=== PATIENT | female | born 1985 | race Asian ===

== ENCOUNTER → 2020-07-20 09:44 | Outpatient (CLI) | payer BC, SELFPAY ==
[2020-07-24 14:52] LABS: HPV APTIMA, High Risk Negative (Negative)
== END ==
PROVIDERS: Visit Provider Obstetrics & Gynecology
DX: Z12.4 Encounter for screening for malignant neoplasm of cervix (principal)
CPT/HCPCS: 87624; 88175; G0145

== ENCOUNTER → 2021-01-07 08:45 | Outpatient (CLI) | payer BC, SELFPAY ==
[2021-01-07 11:03] LABS: Progesterone Level 9.36 ng/mL (See Comment)
== END ==
PROVIDERS: Visit Provider Obstetrics & Gynecology
DX: N97.9 Female infertility, unspecified (principal)
CPT/HCPCS: 36415; 84144

== ENCOUNTER → 2021-01-17 07:32 | Outpatient (CLI) | payer BC, SELFPAY ==
[2021-01-17 08:58] LABS: T3 Total - Triiodothyronine 1.04 ng/mL (0.6-1.81)
[2021-01-17 09:05] LABS: Estradiol 30.3 pg/mL; Follicle Stimulating Hormone 5.6 mIU/mL; Free T3 2.5 pg/mL (2.18-3.98); Prolactin 12.8 ng/mL; T4 Free Direct 0.93 ng/dL (0.76-1.46); Thyroid Stim Hormone (TSH) 1.62 uIU/mL (0.358-3.74)
[2021-01-18 08:01] LABS: Sex Hormone-binding Globulin 29.3 nmol/L (24.6-122.0)
[2021-01-20 13:11] LABS: 17-Hydroxyprogesterone 80 ng/dL (.)
== END ==
PROVIDERS: Referring Provider Obstetrics & Gynecology; Visit Provider Obstetrics & Gynecology
DX: E28.8 Other ovarian dysfunction (principal); E03.9 Hypothyroidism, unspecified
CPT/HCPCS: 36415; 82533; 82627; 82670; 83001; 83498; 84146; 84270; 84403; 84439; 84443; 84480; 84481; 82626

== ENCOUNTER → 2021-01-22 08:17 | Outpatient (CLI) | payer BC, SELFPAY ==
--- NOTE | 2021-01-22 08:30 | RAD_ITS ---
Under fluoroscopy, hysterosalpingogram was performed by the life guard. The uterine cavity was well delineated with contrast. Both fallopian tubes are seen with free spillage of contrast noted bilaterally into the peritoneal cavity. RAD/Salpingogram IMPRESSION: Negative hysterosalpingogram. Electronically Signed: Wilfredo Marquis, at 15:57 EDT Tel , Service support ,
== END ==
PROVIDERS: Referring Provider Obstetrics & Gynecology; Visit Provider Obstetrics & Gynecology
DX: N97.9 Female infertility, unspecified (principal)
CPT/HCPCS: 58340; 74740; Q9967

== ENCOUNTER → 2021-01-22 10:58 | Outpatient (CLI) | payer BC, SELFPAY ==
[2021-01-22 13:07] LABS: Glucose GTT- 1 Hour 245 mg/dL (120-170)
[2021-01-22 13:08] LABS: Insulin 75GTT - Fasting 7.4 mU/L (2.6-37.6)
[2021-01-22 13:10] LABS: Glucose GTT-30 minutes 212 mg/dL (110-170); Insulin 75GTT - 30 MIN 50.2 mU/L (Not Estab.)
[2021-01-22 13:18] LABS: Glucose GTT- Fasting 86 mg/dL (74-106)
[2021-01-22 13:32] LABS: Luteinizing Hormone 8.1 mIU/mL
[2021-01-22 15:52] LABS: Glucose GTT- 2 Hour 123 mg/dL (70-120)
== END ==
PROVIDERS: Visit Provider Obstetrics & Gynecology
DX: Z13.1 Encounter for screening for diabetes mellitus (principal)
CPT/HCPCS: 36415; 82951; 82952; 83002; 83525

== ENCOUNTER 2021-08-13 11:54 | Outpatient (CLI) | payer BC, SELFPAY ==
[2021-08-13 13:34] LABS: Hemoglobin A1c 5.1 % (3.8-5.6)
== END 2021-08-13 23:59 | disposition short-term general hospital (02) ==
LOC: WOBLAB 11:55
PROVIDERS: Visit Provider Obstetrics & Gynecology
DX: R73.09 Other abnormal glucose (principal)
CPT/HCPCS: 36415; 83036

== ENCOUNTER → 2022-09-26 | Outpatient (CLI) | payer BC, SELFPAY ==
[2022-10-02 18:34] LABS: HPV APTIMA, High Risk Negative (Negative)
== END | disposition home or self-care (01) ==
LOC: LABSPEC 09:35
PROVIDERS: Visit Provider Student in an Organized Health Care Education/Training Program
DX: Z12.4 Encounter for screening for malignant neoplasm of cervix (principal)
CPT/HCPCS: 87624; 88175; G0145